=== PATIENT | male | born 1945 | race Hispanic/Latino ===

== ENCOUNTER → 2018-11-21 | Outpatient (CLI) | payer MEDICARE ==
[~2018-11-21] MED LIST: ACETAMINOPHEN325 M1 PO; REGADENOSON 0.4 MG/5 ML SYR IV ONE
--- NOTE | 2018-11-21 20:15 | Myoview Stress Test ---
DATE OF STUDY: 11/21/2018 09:27:00 Stress Test - Treadmill ONLY PROCEDURE TITLE: Rest/stress single isotope SPECT imaging with pharmacologic stress and gated SPECT imaging. INDICATION: Abnormal ECG and pre-chemotherapy evaluation. PROCEDURE IN DETAIL: The patient performed treadmill exercise using a Parish protocol, exercising for 4 minutes 46 seconds to stage II, and completing an estimated workload of 7 metabolic equivalents (METs). The heart rate was 74 beats per minute at rest and increased to 120 beats at peak exercise, which is 82% of the maximum predicted heart rate. Resting electrocardiogram demonstrated normal sinus rhythm. There were no ST-segment changes suggestive of myocardial ischemia. Due to inability to achieve target heart rate, the patient was converted to pharmacologic stress. Pharmacologic stress testing was performed with regadenoson per protocol. The heart rate was 87 beats per minute at rest and increased to 91 beats per minute during the regadenoson infusion. The resting blood pressure was 156/58 mmHg and decreased to 112/50 mmHg, which is a normal response. The resting electrocardiogram demonstrated normal sinus rhythm. There were no ST-segment changes suggestive of myocardial ischemia. Myocardial perfusion imaging was performed at rest following the injection of 10.3 mCi of sestamibi. At peak pharmacologic effect, the patient was injected with 33 mCi of sestamibi. Gated post-stress tomographic imaging was performed. FINDINGS: The overall quality of the study is fair. Left ventricular cavity is noted to be of normal size on the rest and stress studies. SPECT images demonstrate a small moderate perfusion defect in the inferior wall on stress that is not present at rest. Gated SPECT imaging reveals normal myocardial thickening and wall motion. Left ventricular ejection fraction was calculated to be 66%. IMPRESSION: Myocardial perfusion imaging is abnormal. There is a small area of ischemia in the inferior wall. Overall, left ventricular systolic function was normal without regional wall motion abnormalities. Ivana Baum MD ABS/MODL /[id number]
== END ==
LOC: NM 09:07
PROVIDERS: ATTEND Internal Medicine
DX: I20.8 Other forms of angina pectoris (principal)
CPT/HCPCS: 78452; 93017; A9502; J2785

== ENCOUNTER → 2018-12-03 | Day surgery (SDC) | payer MEDICARE ==
[2018-12-01 14:10] LABS: BASOPHILS % 0.2 % (0.0-1.0); EOSINOPHILS # (AUTO) 0.1 (0.0-0.4); EOSINOPHILS % 0.5 % (0.0-6.0); HEMATOCRIT 30.9 % (38.2-49.6); HEMOGLOBIN 9.7 g/dL (14.0-18.0); LYMPHOCYTES # (AUTO) 2.3 (1.0-3.2); LYMPHOCYTES % 17.7 % (18.0-39.1); MEAN CORPUSCULAR HEMOGLOBIN 25.4 pg (28-32); MEAN CORPUSCULAR HGB CONC 31.4 g/dL (31-35); MEAN CORPUSCULAR VOLUME 80.9 fL (81-99); MONOCYTES # (AUTO) 1.3 (0.2-0.8); MONOCYTES % 9.6 % (4.4-11.3); NEUTROPHILS # (AUTO) 9.4 (2.1-6.9); NEUTROPHILS % 71.4 % (38.7-80.0); PLATELET COUNT 354 x10e3/uL (140-360); RED BLOOD COUNT 3.82 x10e6/uL (4.3-5.7); RED CELL DISTRIBUTION WIDTH 14.7 % (11.7-14.4)
[2018-12-01 14:20] LABS: INR 0.95; PROTHROMBIN TIME 13.2 seconds (11.9-14.5)
[2018-12-01 14:30] LABS: ALANINE AMINOTRANSFERASE 30 IU/L (0-55); ALBUMIN/GLOBULIN RATIO 0.6 (0.8-2.0); ALKALINE PHOSPHATASE 163 IU/L (40-150); BLOOD UREA NITROGEN 16 mg/dL (7-26); BUN/CREATININE RATIO 20 (6-25); CALCIUM 10.1 mg/dL (8.4-10.2); CARBON DIOXIDE 25 mmol/L (22-29); CHLORIDE 100 mmol/L (98-107); EST GLOMERULAR FILTRATION RATE > 60 ML/MIN (60-); GLUCOSE 94 mg/dL (74-118); SODIUM 136 mmol/L (136-145)
[~2018-12-03] VITALS: Ht 172.7 cm; Wt 83.5 kg
[2018-12-03] VITALS (9 sets, daily range): BP systolic 117–129; BP diastolic 56–64
[~2018-12-03] MED LIST changes: +FENTANYL CITRATE/PF 100MCG/2 ML INJ ONE; +HEPARIN SOD/SOD CHLORIDE 2,000 ML ONE; +IOPAMIDOL 370 MG/ML 200 ML INFUS..BTL INJ ONE; +LIDOCAINE HCL 2% LOCAL 20 ML VIAL ONE; +MIDAZOLAM HCL 2 MG/2 ML VIAL ONE; -REGADENOSON 0.4 MG/5 ML SYR IV ONE; +SODIUM CHLORIDE 0.9% 1000ML 1,000 ML ONE; +VERAPAMIL HCL 2.5 MG/ML 2 ML VIAL ONE
--- OUTSIDE RECORDS SUMMARY | 2018-12-03 10:12 | XMS REPORT ---
Author Author [facility] Address Unknown Phone Unavailable Care Team Providers Care Assistant Product Manager Name Role Phone Unavailable Unavailable Payers Payer Name Policy Type Policy Number Effective Date Expiration Date Problems This patient has no known problems. Allergies, Adverse Reactions, Alerts This patient has no known allergies or adverse reactions. Medications This patient has no known medications.
--- NOTE | 2018-12-03 14:50 | NUR ---
Received report from Steven Suazo RN. Reviewed medications given, orders, and procedural events. IV to left hand appears to be without signs or symptoms of infiltration at this time. patient appears to be resting with eyes closed. Respirations even and unlabored on room air. TR band to right wrist without signs or symptoms of active bleeding at this time. pulse ox placed to second digit of right hand. 2ml of air left in TR band. Call light within reach. Stretcher in low and locked position with siderails elevatedx2. Patient appears to be in no signs of acute distress at this time. will monitor.
--- NOTE | 2018-12-03 15:00 | NUR ---
2ml of air removed from right wrist TR band. RIght wrist site appears to be without signs or symptoms of active bleeding at this time. TR band removed and dressing placed per unit protocol Arm board placed to right wrist and applied with straps provided and koban. Dressing to right wrist is clean,dry, and intact. [place] [id number] to review discharge instructions, activity restrictions, dressing care, diet, follow-up appointments, and signs and symptoms to look for: when to call the doctor and when to call 911. Patient verbalized understanding and had no questions at this time.
--- NOTE | 2018-12-03 15:15 | NUR ---
Assisted patient getting dressed. Patient ambulated to restroom with standby assistance. Patient void without difficulty. Patient appears to be in no signs of acute distress.
--- NOTE | 2018-12-03 15:30 | NUR ---
IV to left hand removed and dressing placed per protocol. Patient discharged to private vehicle via wheelchair with [employer], family member, as truck driver heavy. Patient discharged with belongings. No distress noted at time of discharge.
--- NOTE | 2018-12-03 20:28 | Operative Report ---
DATE OF PROCEDURE: 12/03/2018 SURGEON: Dominic Crowe MD CARDIAC CATHETERIZATION REPORT INDICATION FOR PROCEDURE: Prechemotherapy evaluation. PREPROCEDURE ASSESSMENT: The risks, benefits, and alternatives of treatment were explained to the patient prior to the procedure. The patient was deemed to be an appropriate candidate for moderate sedation. Informed consent was obtained and documented in the medical record. MEDICATIONS: Please see nursing notes for medications administered throughout the procedure. PROCEDURE PERFORMED: 1. Coronary angiography, right radial approach. 2. Left heart catheterization. PROCEDURE DETAILS: The patient was brought to the cardiac catheterization laboratory in a fasting state. Right radial artery was prepped and draped in a sterile fashion. Access to the right radial artery was obtained using modified Seldinger technique and a 6-[place] Slender sheath was inserted. The patient has right radial loop. This was traversed using a [place] Advantage angled Glidewire. Coronary angiography was performed using Danelle radial catheter to engage the right coronary artery. An XB3.0 guide catheter advanced to engage the left coronary artery. Multiple orthogonal views were taken. All catheters were removed over the guidewire. Case ended without complication. Access site was closed using TR band. SIGNIFICANT FINDINGS: 1. Left main coronary artery mild plaquing without significant stenosis. 2. LAD large vessel wraps around the apex, very large diagonal one. There is mild to moderate plaquing of the LAD diagonal 1 bifurcation with 40% lesion in the LAD and about 50% ostial lesion in diagonal 1. LAD provides significant septal collaterals. There is GARMENT MANUFACTURING SUPERVISOR of the RCA. 3. Left circumflex. Medium-sized nondominant left circumflex, provides epicardial collaterals to the right posterolateral system with excellent retrograde filling. 4. RCA. Very large dominant RCA. There is GARMENT MANUFACTURING SUPERVISOR of the RCA in the proximal portion about 20 mm in length. There is excellent retrograde filling of the RCA, the septal and epicardial collaterals . GRAFTS AND IMPLANTS: None. SPECIMEN REMOVED: None. COMPLICATIONS: None. ESTIMATED BLOOD LOSS: 10 mL. FINAL RECOMMENDATIONS: 1. Continue optimal medical therapy and risk factor control. 2. Return to clinic with Dr. Ivana Baum for further discussion. Dominic Crowe MD KVP/MODL /[id number]
== END | disposition home or self-care (01) ==
LOC: CATH LAB 10:10
PROVIDERS: ATTEND Internal Medicine
DX: Z01.818 Encounter for other preprocedural examination (principal); C34.90 Malignant neoplasm of unspecified part of unspecified bronchus or lung; C78.7 Secondary malignant neoplasm of liver and intrahepatic bile duct; I25.10 Atherosclerotic heart disease of native coronary artery without angina pectoris; I25.82 Chronic total occlusion of coronary artery; I49.8 Other specified cardiac arrhythmias; Z82.49 Family history of ischemic heart disease and other diseases of the circulatory system; Z83.3 Family history of diabetes mellitus; Z80.9 Family history of malignant neoplasm, unspecified
CPT/HCPCS: 36415; 80053; 85025; 85610; 93458; C1769; C1887; J2001; J2250; J3010; J7030; Q9967